=== PATIENT | female | born 1965 | race Caucasian/White ===

== ENCOUNTER 2017-01-07 23:03 | Emergency (ER) | payer SELFPAY ==
[2017-01-07 23:22] VITALS: BP 136/91; PULSE 91; RESP 20; TEMP 98.2; O2SAT 99
[2017-01-08] MEDS ORDERED: Naproxen 550 mg Tab PO STA (00:04)
--- NOTE | 2017-01-08 00:07 | C.PDOC ---
History Of Present Illness 51 year old female who presents to the ER with a complaint of intermittent left shoulder pain for the past 2 weeks that has worsened today with associated tingling sensation to the left arm and fingers. Patient states she ran out of her naproxen at home; denies trauma, weakness, numbness, chest pain, SOB, dizziness. Time Seen by Provider: 01/07/17 23:32 Chief Complaint (Nursing): Upper Extremity Problem/Injury History Per: Patient History/Exam Limitations: no limitations Onset/Duration Of Symptoms: Days, Intermittent Episodes Current Symptoms Are (Timing): Still Present Exacerbating Factor(s): Strenuous Use Of Affected Area Recent travel outside of the [place]: No Past Medical History Reviewed: Historical Data, Nursing Documentation, Vital Signs Vital Signs: Last Vital Signs Temp 98.2 F 01/07/17 23:20 Pulse 91 H 01/07/17 23:20 Resp 20 01/07/17 23:20 BP 136/91 H 01/07/17 23:20 Pulse Ox 99 01/08/17 01:17 - Medical History PMH: Asthma, Back Problems, Diabetes, HTN, Hypercholesterolemia - [facility] Procedures ENDO RECTUM POLYPECTOMY (05/01/14) Family History: States: Unknown Family Hx - Social History Hx Tobacco Use: No Hx Alcohol Use: No Hx Substance Use: No - Immunization History Hx Tetanus Toxoid Vaccination: No Hx Influenza Vaccination: Yes Hx Pneumococcal Vaccination: No Review Of Systems Constitutional: Negative for: Fever, Chills Cardiovascular: Negative for: Chest Pain Respiratory: Negative for: Shortness of Breath Musculoskeletal: Positive for: Shoulder Pain Neurological: Positive for: Other (Tingling). Negative for: Weakness, Numbness Physical Exam - Physical Exam Appears: Non-toxic Skin: Normal Color, Warm, Dry Head: Atraumatic, Normacephalic Eye(s): bilateral: Normal Inspection Oral Mucosa: Moist Cardiovascular: Rhythm Regular, No Murmur Respiratory: Normal Breath Sounds, No Wheezing Extremity: Normal ROM (of right shoulder with pain), Tenderness (anterior left shoulder at ac joint), No Deformity, No Swelling Pulses: Left Radial: Normal, Right Radial: Normal Neurological/Psych: Oriented x3, Normal Speech, Normal Cognition, Normal Motor, Normal Sensation ED Course And Treatment ECG: Interpreted By Me, Viewed By Me ECG Rhythm: Sinus Rhythm ECG Interpretation: Normal Rate From EC O2 Sat by Pulse Oximetry: 99 (Room air) Pulse Ox Interpretation: Normal Progress Note: EKG ordered. Naproxen administered. On reevaluation, patient's pain has improved, will discharge and advise to follow up with PMD. Disposition - Disposition Referrals: Sanjuanita Gordon MD [Medical Doctor] - Disposition: HOME/ ROUTINE Disposition Time: 00:05 Condition: STABLE Additional Instructions: Please follow up with PMD Take meds as directed Return to ER if pain worsen Prescriptions: Naproxen [Naprosyn] 1 tab PO BID PRN #25 tab PRN Reason: Pain Forms: [employer] (Wolof) Print Language: ERITREAN - Clinical Impression Clinical Impression: Shoulder pain, left - Scribe Statement The provider has reviewed the documentation as recorded by the Scribe Ata Bell All medical record entries made by the Scribe were at my direction and personally dictated by me. I have reviewed the chart and agree that the record accurately reflects my personal performance of the history, physical exam, medical decision making, and the department course for this patient. I have also personally directed, reviewed, and agree with the discharge instructions and disposition.
[2017-01-08] MEDS ORDERED: Naproxen 550 mg Tab PO ONE (00:09)
--- NOTE | 2017-01-08 12:27 | CARD ---
APPROVED REPORT EKG Measurement Heart [id number] <Conclusion> Normal sinus rhythm Normal ECG
== END 2017-01-08 00:16 | disposition home or self-care (01) ==
LOC: C.ER 23:03
DX: M25.512 Pain in left shoulder (principal)

== ENCOUNTER 2017-06-04 19:56 | Emergency (ER) | payer SELFPAY ==
[2017-06-04 19:57] VITALS: BMI 37.9
--- NOTE | 2017-06-04 21:22 | C.PDOC ---
History Of Present Illness 52 y/o female with dm and htn c/o cough with white to yellow sputum and pleuritic cp x 2 -3 days. no fever or chills. pain in right shoulder area as well. Time Seen by Provider: 06/04/17 21:15 Chief Complaint (Nursing): Flu-like Symptoms History Per: Patient History/Exam Limitations: no limitations Onset/Duration Of Symptoms: Days (3) Location Of Pain: Other (right upper back) Associated Symptoms: Cough, Sputum. denies: Fever, Chills Past Medical History Reviewed: Historical Data, Nursing Documentation, Vital Signs Vital Signs: Last Vital Signs Temp 98.2 F 06/04/17 22:13 Pulse 79 06/04/17 22:13 Resp 20 06/04/17 22:13 BP 127/82 06/04/17 22:13 Pulse Ox 100 06/07/17 18:11 - Medical History PMH: Asthma, Back Problems, Diabetes, HTN, Hypercholesterolemia Denies: Chronic Kidney Disease - [facility] Procedures ENDO RECTUM POLYPECTOMY (05/01/14) Family History: States: Unknown Family Hx - Social History Hx Tobacco Use: No Hx Alcohol Use: No Hx Substance Use: No - Immunization History Hx Tetanus Toxoid Vaccination: No Hx Influenza Vaccination: No Hx Pneumococcal Vaccination: No Review Of Systems Constitutional: Negative for: Fever, Chills Cardiovascular: Negative for: Chest Pain Respiratory: Positive for: Cough, Sputum. Negative for: Shortness of Breath, Hemoptysis, Wheezing Gastrointestinal: Negative for: Abdominal Pain Neurological: Negative for: Weakness, Numbness Physical Exam - Physical Exam Appears: Non-toxic, No Acute Distress Skin: Warm, Dry Head: Atraumatic, Normacephalic Eye(s): bilateral: Normal Inspection Nose: No Discharge Oral Mucosa: Moist Throat: No Erythema, No Exudate Neck: Supple Cardiovascular: Rhythm Regular Respiratory: No Decreased Breath Sounds, No Rales, No Rhonchi, No Wheezing Back: Normal Inspection, Paraspinal Tenderness (rugght upper back) Extremity: Normal ROM, No Pedal Edema Neurological/Psych: Oriented x3, Normal Speech, Normal Cognition ED Course And Treatment O2 Sat by Pulse Oximetry: 100 Medical Decision Making Medical Decision Making: reviewed xray, no acute infiltrate noted. will d/c home. pt with clear lungs/ Disposition Counseled Patient/Family Regarding: Studies Performed, Diagnosis, Need For Followup - Disposition Referrals: Isa Hinds MD [Primary Care Provider] - Disposition: HOME/ ROUTINE Disposition Time: 22:01 Condition: STABLE Additional Instructions: Por favor tome Tylenol o Motrin para el dolor si es necesario. El Rito Z Pack seg n lo recetado. Siga en la clnica mdica en los prximos gee. Prescriptions: Azithromycin [Z-Huy] 250 mg PO DAILY #6 tab Instructions: Acute Bronchitis (ED) Forms: Gen Discharge Inst Afghan, [employer] (Afghan) Print Language: UPPER SORBIAN - Clinical Impression Clinical Impression: Bronchitis
[2017-06-04 22:14] VITALS: BP 127/82; PULSE 79; RESP 20; TEMP 98.2
--- NOTE | 2017-06-05 08:41 | RAD ---
Chest x-ray two views History: Cough. Chest pain. Comparison: 03/07/2015 Findings: No focal infiltrate or effusion. Heart size within normal limits. Tortuous aorta. Degenerative changes in the spine. Small nodular density at the right lung base may represent vessel on end. Impression: No focal infiltrate or effusion.
[2017-06-07 18:12] VITALS: O2SAT 100
== END 2017-06-04 22:13 | disposition home or self-care (01) ==
LOC: C.ER 19:56 → SUPCPDRO 19:56 → C.ER 22:13
DX: J40 Bronchitis, not specified as acute or chronic (principal)

== ENCOUNTER 2017-09-11 09:32 | Emergency (ER) | payer OTHER ==
[2017-09-11 09:33] VITALS: BMI 37.9
[2017-09-11 10:07] VITALS: BP 140/108; PULSE 80; TEMP 97.7; O2SAT 100
--- NOTE | 2017-09-11 10:10 | C.PDOC ---
History Of Present Illness 52 year old female present to the ED with complaints of nasal congestion, and body aches. Patient has had frequent visits to the ED. In the past, patient has consistently complained of multiple issues. Time Seen by Provider: 09/11/17 10:03 Chief Complaint (Nursing): Cough, Cold, Congestion History Per: Patient History/Exam Limitations: no limitations Onset/Duration Of Symptoms: Days Current Symptoms Are (Timing): Still Present Past Medical History Reviewed: Historical Data, Nursing Documentation, Vital Signs Vital Signs: Last Vital Signs Temp 97.7 F 09/11/17 09:51 Pulse 80 09/11/17 09:51 Resp 16 09/11/17 10:20 BP 140/108 H 09/11/17 09:51 Pulse Ox 100 09/11/17 10:10 - Medical History PMH: Asthma, Back Problems, Diabetes, HTN, Hypercholesterolemia Denies: Chronic Kidney Disease - [facility] Procedures ENDO RECTUM POLYPECTOMY (05/01/14) Family History: States: Unknown Family Hx - Social History Hx Tobacco Use: No Hx Alcohol Use: No Hx Substance Use: No - Immunization History Hx Tetanus Toxoid Vaccination: No Hx Influenza Vaccination: No Hx Pneumococcal Vaccination: No Review Of Systems Except As Marked, All Systems Reviewed And Found Negative. ENT: Positive for: Other (nasal congestion) Musculoskeletal: Positive for: Other (body aches) Physical Exam - Physical Exam Appears: Well, Non-toxic, No Acute Distress Skin: Normal Color, Warm Throat: Normal Neurological/Psych: Oriented x3, Normal Speech ED Course And Treatment O2 Sat by Pulse Oximetry: 100 (RA) Pulse Ox Interpretation: Normal Medical Decision Making Medical Decision Making: IMPRESSION: Nasal Congestion Plan: --CHemistry POC Glucose seasonal allergies, nasal congestion, no acute infection, lungs clear many prior evals in Clinic for fatigue, back pains with neg w/u including serology ? underlying anxity/depression poor med compliance w DM meds- diet and compliance educated. Disposition Doctor Will See Patient In The: Office Counseled Patient/Family Regarding: Studies Performed, Diagnosis - Disposition Referrals: General Studies Program Chair Service [Outside] [facility] [Outside] Disposition: HOME/ ROUTINE Disposition Time: 10:10 Condition: GOOD Additional Instructions: Rae Cindy o' Claritin, o' otro medicamentos para la allergias de la temporada Rae Nyquil en la noche para ayudarse dormir Sigue en la Clinica Familiar Instructions: Seasonal Allergies in Adults Forms: [facility] (Burundian) Print Language: GERMAN - Clinical Impression Clinical Impression: Influenza-like illness - Scribe Statement The provider has reviewed the documentation as recorded by the Scribe (Ele Fay) All medical record entries made by the Scribe were at my direction and personally dictated by me. I have reviewed the chart and agree that the record accurately reflects my personal performance of the history, physical exam, medical decision making, and the department course for this patient. I have also personally directed, reviewed, and agree with the discharge instructions and disposition.
[2017-09-11 10:21] VITALS: RESP 16
== END 2017-09-11 10:20 | disposition home or self-care (01) ==
LOC: C.ER 09:32
DX: J11.1 Influenza due to unidentified influenza virus with other respiratory manifestations (principal)

== ENCOUNTER 2018-08-03 22:45 | Observation (INO) | payer OTHER ==
[2018-08-03 23:46] LABS: BASO % 0.5 % (0.0-2.0); EOS # 0.1 K/uL (0.0-0.7); EOS % 1.2 % (0.0-4.0); HEMOGLOBIN 14.1 g/dL (11.0-16.0); LYMPH # 2.8 K/uL (1.0-4.3); LYMPH % 37.5 % (20.0-40.0); MEAN CORPUSCULAR HEMOGLOBIN 29.1 pg (27.0-31.0); MEAN CORPUSCULAR HGB CONC 33.5 g/dL (33.0-37.0); MEAN PLATELET VOLUME 8.3 fL (7.2-11.7); MONO # 0.4 K/uL (0.0-0.8); MONO % 5.6 % (0.0-10.0); NEUT # 4.2 K/uL (1.8-7.0); NEUT % 55.2 % (50.0-75.0); RBC 4.85 Mil/uL (3.80-5.20); RED CELL DISTRIBUTION WIDTH 13.3 % (11.5-14.5); WHITE BLOOD COUNT 7.6 K/uL (4.8-10.8)
[2018-08-03 23:51] LABS: MEAN CELL VOLUME 86.9 fL (81.0-99.0)
[2018-08-03 23:54] LABS: PROTHROMBIN TIME 11.3 SECONDS (9.7-12.2)
[2018-08-04 00:06] LABS: CK-MB 1.34 ng/mL (0.0-3.38)
[2018-08-04 00:18] LABS: ALB/GLOB RATIO 1.6 (1.0-2.1); ALBUMIN 4.5 g/dL (3.5-5.0); ALT/SGPT 19 U/L (9-52); AST/SGOT 24 U/L (14-36); BLOOD UREA NITROGEN 17 mg/dL (7-17); CALCIUM 9.8 mg/dl (8.6-10.4); GFR NON-AFRICAN AMERICAN > 60
--- NOTE | 2018-08-04 00:34 | C.PDOC ---
History Of Present Illness Patient presents to ED c/o left sided chest pain described as intermittent, nonradiating, burning/pressure like in nature. Pain began yesterday, and is not associated with palpitations, SOB, nausea/vomiting, rashes, cough or fever. Patient has PMhx of asthma, HTN, DM, hyperlipidemia. She has previously seen principal data architect Dr. Lopez "several years ago", but stopped going due to loss of insurance. Time Seen by Provider: 08/03/18 23:04 Chief Complaint (Nursing): Chest Pain History Per: Patient History/Exam Limitations: no limitations Onset/Duration Of Symptoms: Days (2) Current Symptoms Are (Timing): Still Present Severity: Mild Quality: Burning, Squeezing, "Pain" Exacerbating Factors: None. denies: Turning, Movement, Deep Breathing, Exertion Past Medical History Reviewed: Historical Data, Nursing Documentation, Vital Signs Vital Signs: Last Vital Signs Temp 97.9 F 08/03/18 22:49 Pulse 86 08/03/18 22:49 Resp 16 08/03/18 22:49 BP 150/84 08/03/18 22:49 Pulse Ox 98 08/03/18 22:49 - Medical History PMH: Asthma, Back Problems, Diabetes, HTN, Hypercholesterolemia - [facility] Procedures ENDO RECTUM POLYPECTOMY (05/01/14) Family History: States: No Known Family Hx - Social History Hx Tobacco Use: No Hx Alcohol Use: No Hx Substance Use: No - Immunization History Hx Tetanus Toxoid Vaccination: No Hx Influenza Vaccination: Yes Hx Pneumococcal Vaccination: No Review Of Systems Constitutional: Negative for: Fever, Chills Cardiovascular: Positive for: Chest Pain. Negative for: Palpitations Respiratory: Negative for: Cough, Shortness of Breath Gastrointestinal: Negative for: Nausea, Vomiting, Abdominal Pain, Diarrhea Genitourinary: Negative for: Dysuria Neurological: Negative for: Headache, Dizziness Physical Exam - Physical Exam Appears: Well, Non-toxic, No Acute Distress Skin: Normal Color, Warm, Dry, No Rash Head: Normacephalic Eye(s): bilateral: Normal Inspection Oral Mucosa: Moist Cardiovascular: Rhythm Regular, No Murmur Respiratory: Normal Breath Sounds, No Rales, No Rhonchi, No Wheezing Gastrointestinal/Abdominal: Normal Exam, Bowel Sounds, Soft, No Tenderness Extremity: Normal ROM, No Pedal Edema, No Calf Tenderness Pulses: Left Dorsalis Pedis: Normal, Right Dorsalis Pedis: Normal Neurological/Psych: Oriented x3 ED Course And Treatment - Laboratory Results Result Diagrams: 08/03/18 11:39 08/03/18 11:39 Lab Results: PT 11.3 SECONDS (9.7-12.2) 08/03/18 11:39 INR 1.0 08/03/18 11:39 APTT 33 SECONDS (21-34) 08/03/18 11:39 Troponin I < 0.0120 ng/mL (0.00-0.120) 08/03/18 11:39 Total Bilirubin 0.4 mg/dL (0.2-1.3) 08/03/18 11:39 AST 24 U/L (14-36) 08/03/18 11:39 ALT 19 U/L (9-52) 08/03/18 11:39 Alkaline Phosphatase 80 U/L (38-126) 08/03/18 11:39 Total Protein 7.4 g/dL (6.3-8.3) 08/03/18 11:39 Albumin 4.5 g/dL (3.5-5.0) 08/03/18 11:39 Globulin 2.9 gm/dL (2.2-3.9) 08/03/18 11:39 Albumin/Globulin Ratio 1.6 (1.0-2.1) 08/03/18 11:39 ECG: Interpreted By Me, Viewed By Me (NSR 86 bpm, normal axis, RBBB, no acute ST/T wave changes) ECG Interpretation: No Acute Changes O2 Sat by Pulse Oximetry: 98 (RA) Pulse Ox Interpretation: Normal - Radiology CXR: Interpreted by Me, Viewed By Me CXR Interpretation: Yes: No Acute Disease. No: Infiltrates Progress Note: Blood work, EKG, CXR ordered and reviewed. No PO ASA given due to allergy. Disposition - Disposition
--- NOTE | 2018-08-04 01:02 | CP.PCM.HP ---
<Melba Arroyo P - Last Filed: 08/04/18 06:47> History of Present Illness - History of Present Illness History of Present Illness: Medicine H&P CC: Chest pain HPI: 53 year old female with PMHx of DM, HTN, HLD and asthma presents to ED complaining of L side chest pain that began last night. Pain is described as an pinching type pain 5/10 associated with L arm numbness/heaviness. Patient states she gets this pain whenever she takes her medications or when her blood sugar is elevated. The pain usually resolves within a few seconds after drinking water, however last night the pain lasted for hours prompting her to go to the ED. Patient also endorses generalized headache and lightheadedness. Patient denies fever, chills, palpitations, shortness of breath, cough, nausea, vomiting, dysu shadi, hematuria, rash, sick contacts and recent travel. PMHx: DM, HTN, HLD and asthma PSHx: denies Meds: See med list Allergies: Aspirin- abdominal pain FamHx: Mother with DM and endometrial cancer SocHx: Occassional alcohol, denies tobacco and illicit drug use. 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 PMD: Dr. Hinds Review of Systems: -Gen: No fever, No chills, + headache, No lethargy, No weakness. -HEENT: +lightheaded, No change in vision, No change in hearing, No sore throat, No dysphagia, No nasal congestion, No mucous. -Cardio: +chest pain, No palpitations, No lower extremity edema, No orthopnea. -Resp: No cough, No dyspnea, No hemoptysis, No wheezing, No pain on inspiration. -GI: No abdominal pain, No nausea/vomiting, No diarrhea/constipation, No hematochezia, No hematemesis. -: No dysuria, No urinary freq, No incontinence, No hematuria, No change in urinary stream. -MSK: +L arm heaviness. No back pain, No muscle weakness, No radiating pain. -Skin: No itching, No rash, No lesions. -Neuro: No confusion, + L arm numbness, No tingling, No radicular pain, No syncope. -Psych: No anxiety, No depression, No H/I, No S/I, No hallucinations. Present on Admission - Present on Admission Any Indicators Present on Admission: Yes History of Uncontrolled Diabetes: Yes Past Patient History - Infectious Disease Hx of Infectious Diseases: None - Past Medical History & Family History Past Medical History?: Yes - Past Social History Smoking Status: Never Smoked - CARDIAC Hx Hypercholesterolemia: Yes Hx Hypertension: Yes - PULMONARY Hx Asthma: Yes - NEUROLOGICAL Hx Neurological Disorder: No - HEENT Hx HEENT Problems: No - RENAL Hx Chronic Kidney Disease: No - ENDOCRINE/METABOLIC Hx Endocrine Disorders: Yes Hx Diabetes Mellitus Type 2: Yes - HEMATOLOGICAL/ONCOLOGICAL Hx Blood Disorders: No - INTEGUMENTARY Hx Dermatological Problems: No - MUSCULOSKELETAL/RHEUMATOLOGICAL Hx Musculoskeletal Disorders: Yes - GASTROINTESTINAL Hx Gastrointestinal Disorders: No - GENITOURINARY/GYNECOLOGICAL Hx Genitourinary Disorders: Yes (UTERINE CYSTS) - PSYCHIATRIC Hx Substance Use: No - SURGICAL HISTORY Hx Surgeries: No - ANESTHESIA Hx Anesthesia: No Hx Anesthesia Reactions: No Hx Malignant Hyperthermia: No Meds Allergies/Adverse Reactions: Allergies Allergy/AdvReac Type Severity Reaction Status Date / Time aspirin Allergy DIARRHEA Verified 08/03/18 22:52 Physical Exam - Constitutional Appears: Non-toxic, No Acute Distress - Head Exam Head Exam: ATRAUMATIC, NORMOCEPHALIC - Eye Exam Eye Exam: EOMI, Normal appearance, PERRL - ENT Exam ENT Exam: Normal Exam - Neck Exam Neck exam: Positive for: Full Rom, Normal Inspection. Negative for: Lymphadenopathy - Respiratory Exam Respiratory Exam: Chest Wall Tenderness, Clear to Auscultation Bilateral, NORMAL BREATHING PATTERN. absent: Rales, Rhonchi, Wheezes, Respiratory Distress - Cardiovascular Exam Cardiovascular Exam: REGULAR RHYTHM, +S1, +S2 Additional comments: Reproducible tenderness on palpation of the L chest - GI/Abdominal Exam GI & Abdominal Exam: Normal Bowel Sounds, Soft. absent: Firm, Guarding, Rebound, Tenderness - Extremities Exam Extremities exam: Positive for: full ROM, normal capillary refill, normal inspection, tenderness (to palpation of bicipital groove on the L), pedal pulses present. Negative for: calf tenderness, pedal edema - Neurological Exam Neurological exam: Alert, CN II-XII Intact, Normal Gait, Oriented x3 - Psychiatric Exam Psychiatric exam: Normal Affect, Normal Mood - Skin Skin Exam: Dry, Intact, Normal Color, Warm Results - Vital Signs Recent Vital Signs: Last Vital Signs Temp 97.9 F 08/03/18 22:49 Pulse 86 08/03/18 22:49 Resp 16 08/03/18 22:49 BP 150/84 08/03/18 22:49 Pulse Ox 98 08/04/18 00:36 - Labs Result Diagrams: 08/04/18 06:03 08/04/18 06:03 Labs: Laboratory Results - last 24 hr 08/03/18 08/03/18 08/03/18 11:39 11:39 11:39 WBC 7.6 RBC 4.85 Hgb 14.1 Hct 42.1 MCV 86.9 D MCH 29.1 MCHC 33.5 RDW 13.3 Plt Count 288 MPV 8.3 Neut % (Auto) 55.2 Lymph % (Auto) 37.5 [place] % (Auto) 5.6 Eos % (Auto) 1.2 Baso % (Auto) 0.5 Neut # (Auto) 4.2 Lymph # (Auto) 2.8 [place] # (Auto) 0.4 Eos # (Auto) 0.1 Baso # (Auto) 0.0 PT 11.3 INR 1.0 APTT 33 Sodium 137 Potassium 4.2 Chloride 100 Carbon Dioxide 27 Anion Gap 14 BUN 17 Creatinine 0.6 L Est GFR ( Amer) > 60 Est GFR (Non-Af Amer) > 60 Random Glucose 155 H D Calcium 9.8 Total Bilirubin 0.4 AST 24 ALT 19 Alkaline Phosphatase 80 Total Creatine Kinase 91 CK-MB (Mass) 1.34 Troponin I < 0.0120 Total Protein 7.4 Albumin 4.5 Globulin 2.9 Albumin/Globulin Ratio 1.6 Assessment & Plan - Assessment and Plan (Free Text) Plan: Chest Pain rule out MN EKG: NSR 86 bpm, normal axis, RBBB, no acute ST/T wave changes QUINN neg x1, follow up serial ROMIs and EKGs CXR: No active disease Hgb A1c 07/20: 12.2 Lipid panel 07/20: Chl 215, HDL 66, LDL 212, TG 81 F/U TSH DM Hgb A1c 07/20: 12.2 Metformin 850mg TID Glipizide 5mg PO daily Hypoglycemia protocol Accuchecks ACHS HTN Home med Losartan 100mg PO QD HLD Home med Crestor 10mg PO HS PPx Heparin 5000u SC Q8H HH/CCD Case discussed with Dr. Carballo. Melba Arroyo <KaitBhupendra P - Last Filed: 08/04/18 08:25> Results - Vital Signs Recent Vital Signs: Last Vital Signs Temp 98.1 F 08/04/18 08:20 Pulse 80 08/04/18 08:20 Resp 20 08/04/18 08:20 BP 107/67 08/04/18 08:20 Pulse Ox 97 08/04/18 08:20 - Labs Result Diagrams: 08/04/18 06:03 08/04/18 06:03 Labs: Laboratory Results - last 24 hr 08/03/18 08/03/18 08/03/18 11:39 11:39 11:39 WBC 7.6 RBC 4.85 Hgb 14.1 Hct 42.1 MCV 86.9 D MCH 29.1 MCHC 33.5 RDW 13.3 Plt Count 288 MPV 8.3 Neut % (Auto) 55.2 Lymph % (Auto) 37.5 [place] % (Auto) 5.6 Eos % (Auto) 1.2 Baso % (Auto) 0.5 Neut # (Auto) 4.2 Lymph # (Auto) 2.8 [place] # (Auto) 0.4 Eos # (Auto) 0.1 Baso # (Auto) 0.0 PT 11.3 INR 1.0 APTT 33 Sodium 137 Potassium 4.2 Chloride 100 Carbon Dioxide 27 Anion Gap 14 BUN 17 Creatinine 0.6 L Est GFR ( Amer) > 60 Est GFR (Non-Af Amer) > 60 Random Glucose 155 H D Calcium 9.8 Total Bilirubin 0.4 AST 24 ALT 19 Alkaline Phosphatase 80 Total Creatine Kinase 91 CK-MB (Mass) 1.34 Troponin I < 0.0120 Total Protein 7.4 Albumin 4.5 Globulin 2.9 Albumin/Globulin Ratio 1.6 Free T4 TSH 3rd Generation 08/04/18 08/04/18 08/04/18 06:03 06:03 06:03 WBC 8.0 RBC 4.68 Hgb 14.0 Hct 41.4 MCV 88.5 MCH 30.0 MCHC 33.9 RDW 13.1 Plt Count 284 MPV 8.5 Neut % (Auto) 54.7 Lymph % (Auto) 37.6 [place] % (Auto) 6.1 Eos % (Auto) 1.2 Baso % (Auto) 0.4 Neut # (Auto) 4.4 Lymph # (Auto) 3.0 [place] # (Auto) 0.5 Eos # (Auto) 0.1 Baso # (Auto) 0.0 PT INR APTT Sodium 135 Potassium 4.0 Chloride 99 Carbon Dioxide 27 Anion Gap 13 BUN 15 Creatinine 0.5 L Est GFR ( Amer) > 60 Est GFR (Non-Af Amer) > 60 Random Glucose 226 H D Calcium 9.7 Total Bilirubin 0.3 AST 28 ALT 17 Alkaline Phosphatase 74 Total Creatine Kinase 71 CK-MB (Mass) 0.85 Troponin I < 0.0120 Total Protein 6.9 Albumin 4.2 Globulin 2.6 Albumin/Globulin Ratio 1.6 Free T4 1.06 TSH 3rd Generation 3.39 Attending/Attestation - Attestation I have personally seen and examined this patient.: Yes I have fully participated in the care of the patient.: Yes I have reviewed all pertinent clinical information: Yes Notes (Text): 08/04/18 08:[address] in both shoulder, left axillary area, reproducible, no acute ekg changes, suspect form cervical radiculopathy H/o DM, hld, htn Plan Serial enzymes Tramadol prn See orders for detail.
[2018-08-04] MEDS ORDERED: Dextrose 50% SYRINGE Inj (50 ml) IV PRN (02:37)
[2018-08-04] MEDS ORDERED: Glucagon Recombinant 1 mg Inj IM PRN (02:37)
[2018-08-04 04:05] VITALS: RESP 20
[2018-08-04 06:07] LABS: BASO % 0.4 % (0.0-2.0); EOS # 0.1 K/uL (0.0-0.7); EOS % 1.2 % (0.0-4.0); LYMPH % 37.6 % (20.0-40.0); MEAN CELL VOLUME 88.5 fL (81.0-99.0); MEAN CORPUSCULAR HGB CONC 33.9 g/dL (33.0-37.0); MEAN PLATELET VOLUME 8.5 fL (7.2-11.7); MONO # 0.5 K/uL (0.0-0.8); MONO % 6.1 % (0.0-10.0); NEUT # 4.4 K/uL (1.8-7.0); NEUT % 54.7 % (50.0-75.0); NRBC % 0.1 % (0.0-2.0); RBC 4.68 Mil/uL (3.80-5.20); RED CELL DISTRIBUTION WIDTH 13.1 % (11.5-14.5)
[2018-08-04 06:25] LABS: ALB/GLOB RATIO 1.6 (1.0-2.1); ALBUMIN 4.2 g/dL (3.5-5.0); ALT/SGPT 17 U/L (9-52); AST/SGOT 28 U/L (14-36); BLOOD UREA NITROGEN 15 mg/dL (7-17); CALCIUM 9.7 mg/dl (8.6-10.4); GFR NON-AFRICAN AMERICAN > 60
[2018-08-04 06:31] LABS: CK-MB 0.85 ng/mL (0.0-3.38)
--- NOTE | 2018-08-04 07:30 | RAD ---
Date of service: 08/03/2018 HISTORY: CP COMPARISON: Chest radiograph 06/04/2017. TECHNIQUE: 1 view obtained. FINDINGS: LUNGS: Diminished pulmonary volume. No acute infiltrate is identified bilaterally. PLEURA: No significant pleural effusion identified, no pneumothorax apparent. CARDIOVASCULAR: No aortic atherosclerotic calcification present. Normal cardiac size. No pulmonary vascular congestion. OSSEOUS STRUCTURES: No significant abnormalities. VISUALIZED UPPER ABDOMEN: Normal. OTHER FINDINGS: None. IMPRESSION: Diminished inspiratory volume. No interval acute cardiopulmonary disease otherwise evident.
[2018-08-04] MEDS ORDERED: Tramadol 25 mg PO ONE (08:00)
[2018-08-04] MEDS: (Novolin R) Insulin Human Regular 100 units/ml vial SC SCH ×3 (08:11→12:38)
[2018-08-04 08:22] VITALS: BP 107/67; PULSE 80; TEMP 98.1; O2SAT 97
--- NOTE | 2018-08-04 10:09 | CP.PCM.DIS ---
<Christian Rodriguez - Last Filed: 08/04/18 13:27> Provider - Provider Date of Admission: 08/04/18 00:55 Attending physician: Bhupendra Carballo MD Time Spent in preparation of Discharge (in minutes): 40 Diagnosis - Discharge Diagnosis (1) Chest pain, musculoskeletal Status: Acute Hospital Course - Lab Results Lab Results: Most Recent Lab Values WBC 8.0 K/uL (4.8-10.8) 08/04/18 06:03 RBC 4.68 Mil/uL (3.80-5.20) 08/04/18 06:03 Hgb 14.0 g/dL (11.0-16.0) 08/04/18 06:03 Hct 41.4 % (34.0-47.0) 08/04/18 06:03 MCV 88.5 fL (81.0-99.0) 08/04/18 06:03 MCH 30.0 pg (27.0-31.0) 08/04/18 06:03 MCHC 33.9 g/dL (33.0-37.0) 08/04/18 06:03 RDW 13.1 % (11.5-14.5) 08/04/18 06:03 Plt Count 284 K/uL (130-400) 08/04/18 06:03 MPV 8.5 fL (7.2-11.7) 08/04/18 06:03 Neut % (Auto) 54.7 % (50.0-75.0) 08/04/18 06:03 Lymph % (Auto) 37.6 % (20.0-40.0) 08/04/18 06:03 Wilson % (Auto) 6.1 % (0.0-10.0) 08/04/18 06:03 Eos % (Auto) 1.2 % (0.0-4.0) 08/04/18 06:03 Baso % (Auto) 0.4 % (0.0-2.0) 08/04/18 06:03 Neut # (Auto) 4.4 K/uL (1.8-7.0) 08/04/18 06:03 Lymph # (Auto) 3.0 K/uL (1.0-4.3) 08/04/18 06:03 Wilson # (Auto) 0.5 K/uL (0.0-0.8) 08/04/18 06:03 Eos # (Auto) 0.1 K/uL (0.0-0.7) 08/04/18 06:03 Baso # (Auto) 0.0 K/uL (0.0-0.2) 08/04/18 06:03 PT 11.3 SECONDS (9.7-12.2) 08/03/18 11:39 INR 1.0 08/03/18 11:39 APTT 33 SECONDS (21-34) 08/03/18 11:39 Sodium 135 mmol/L (132-148) 08/04/18 06:03 Potassium 4.0 mmol/L (3.6-5.2) 08/04/18 06:03 Chloride 99 mmol/L (98-107) 08/04/18 06:03 Carbon Dioxide 27 mmol/L (22-30) 08/04/18 06:03 Anion Gap 13 (10-20) 08/04/18 06:03 BUN 15 mg/dL (7-17) 08/04/18 06:03 Creatinine 0.5 mg/dL (0.7-1.2) L 08/04/18 06:03 Est GFR ( Amer) > 60 08/04/18 06:03 Est GFR (Non-Af Amer) > 60 08/04/18 06:03 Random Glucose 226 mg/dL (65-105) H D 08/04/18 06:03 Calcium 9.7 mg/dl (8.6-10.4) 08/04/18 06:03 Total Bilirubin 0.3 mg/dL (0.2-1.3) 08/04/18 06:03 AST 28 U/L (14-36) 08/04/18 06:03 ALT 17 U/L (9-52) 08/04/18 06:03 Alkaline Phosphatase 74 U/L (38-126) 08/04/18 06:03 Total Creatine Kinase 71 U/L (30-135) 08/04/18 06:03 CK-MB (Mass) 0.85 ng/mL (0.0-3.38) 08/04/18 06:03 Troponin I < 0.0120 ng/mL (0.00-0.120) 08/04/18 06:03 Total Protein 6.9 g/dL (6.3-8.3) 08/04/18 06:03 Albumin 4.2 g/dL (3.5-5.0) 08/04/18 06:03 Globulin 2.6 gm/dL (2.2-3.9) 08/04/18 06:03 Albumin/Globulin Ratio 1.6 (1.0-2.1) 08/04/18 06:03 Free T4 1.06 ng/dL (0.78-2.19) 08/04/18 06:03 TSH 3rd Generation 3.39 mIU/L (0.46-4.68) 08/04/18 06:03 - Hospital Course Hospital Course: HPI: 53 year old female with PMHx of DM, HTN, HLD and asthma presents to ED complaining of L side chest pain that began last night. Pain is described as an pinching type pain 5/10 associated with L arm numbness/heaviness. Patient states she gets this pain whenever she takes her medications or when her blood sugar is elevated. The pain usually resolves within a few seconds after drinking water, however last night the pain lasted for hours prompting her to go to the ED. Patient also endorses generalized headache and lightheadedness. Patient denies fever, chills, palpitations, shortness of breath, cough, nausea, vomiting, dysuria, hematuria, rash, sick contacts and recent travel. During course of admission: Chest Xray obtained demonstrated no acute findings. EKG demonstrated normal sinus rhythm @ 86 beats per minute with ST or T wave changes. Serial troponin series obtained were within normal limits. Analgesics were provided for pain, likely musculoskeletal in origin as it was reproducible on physical exam to palpation and with range of motion testing. Patient was monitored overnight, remained afebrile and hemodynamically stable with improvement of pain. She is medically stable for discharge to home, as per Dr. Salcedo. Please take medications as prescribed. Chest pain is likely musculoskeletal in origin. Naproxen has been provided for anti-inflammatory, to be taken with meals. Flexeril has been provided to help reduced muscle spasms, to be taken at night as patient may feel drowsy. A short course of oral steroids has also been provided, per Dr. Salcedo, for patient's joint pain in her hands. Please follow up at [facility] for further monitoring and continuity of care. Contact information has been provided below. Please call to schedule an appointment. [facility] [place] [address] If symptoms worsen or recur, please return to ED immediately. The following is a summary of hospital course. For full detail, please refer to EMR. - Date & Time of H&P Date of H&P: 08/04/18 Time of H&P: 13:32 Discharge Exam - Head Exam Head Exam: ATRAUMATIC, NORMAL INSPECTION, NORMOCEPHALIC - Eye Exam Eye Exam: EOMI, Normal appearance Pupil Exam: NORMAL ACCOMODATION - ENT Exam ENT Exam: Mucous Membranes Moist, Normal Exam - Respiratory Exam Respiratory Exam: Clear to PA & Lateral, NORMAL BREATHING PATTERN, UNREMARKABLE. absent: Accessory Muscle Use, Decreased Breath Sounds, Respiratory Distress - Cardiovascular Exam Cardiovascular Exam: REGULAR RHYTHM, +S1, +S2 - GI/Abdominal Exam GI & Abdominal Exam: Normal Bowel Sounds, Soft, Unremarkable. absent: Distended, Firm, Guarding, Rebound, Rigid, Tenderness - Extremities Exam Extremities exam: full ROM, normal capillary refill, normal inspection, pedal pulses present Additional comments: some tenderness noted along MTP, PIP joints of hands b/l mild TTP of L shoulder - Back Exam Back exam: NORMAL INSPECTION - Neurological Exam Neurological exam: Alert, Normal Gait, Oriented x3 - Skin Skin Exam: Dry, Intact, Normal Color, Warm Discharge Plan - Discharge Medications Prescriptions: Cyclobenzaprine [Cyclobenzaprine HCl] 10 mg PO HS #5 tab GlipiZIDE [Glucotrol] 5 mg PO DAILY #30 tab Losartan [Cozaar] 100 mg PO DAILY #30 tab metFORMIN [glucOPHAGE] 850 mg PO DAILY #30 tab Naproxen 250 mg PO DAILY #5 tablet predniSONE [Prednisone] 20 mg PO DAILY #4 tab - Follow Up Plan Condition: GOOD Disposition: HOME/ ROUTINE Instructions: Heart Healthy Diet, Diabetes Exchange Diet, Chest Pain That Is Not Caused by the Heart (DC), Diabetes Diet , Chest Pain (DC), Cyclobenzaprine, Glipizide, Losartan, Metformin, Naproxen, Prednisone Additional Instructions: Patient is medically stable for discharge to home, as per Dr. Salcedo. Please take medications as prescribed. Chest pain is likely musculoskeletal in origin. Naproxen has been provided for anti-inflammatory, to be taken with meals. Flexeril has been provided to help reduced muscle spasms, to be taken at night as patient may feel drowsy. A short course of oral steroids has also been provided, per Dr. Salcedo, for patient's joint pain in her hands. Please follow up at [facility] for further monitoring and continuity of care. Contact information has been provided below. Please call [place] [address] If symptoms worsen or recur, please return to ED immediately. El paciente se encuentra mdicamente estable para el pasquale hospitalaria, segn el Dr. Salcedo. Por favor tome los medicamentos segn lo prescrito. El dolor de pecho es probablemente de origen musculoesqueltico. El naproxeno se ordoñez suministrado joseline antiinflamatorio para luke con las comidas. Se ordoñez proporcionado Flexeril para ayudar a reducir los espasmos musculares, que debe tomarse por la noche ya que el paciente puede sentirse somnoliento. Tambin se ordoñez proporcionado un curso corto de esteroides orales, segn el Dr. Salcedo, para el dolor articular de la paciente en duke suraj. Por favor, herb un seguimiento en [facility] en [facility] para radha mayor supervisin y continuidad de la atencin. La informacin de contacto se ordoñez proporcionado a continuacin. Favor de llamar para hacer radha angelo. [facility] [place] [address] Telfono: [phone] Si los sntomas empeoran o reaparecen, regrese inmediatamente a la DE. Referrals: [facility] [Outside] <Sanchez Salcedo - Last Filed: 08/04/18 14:54> Provider - Provider Date of Admission: 08/04/18 00:55 Attending physician: Bhupendra Carballo MD Hospital Course - Lab Results Lab Results: Most Recent Lab Values WBC 8.0 K/uL (4.8-10.8) 08/04/18 06:03 RBC 4.68 Mil/uL (3.80-5.20) 08/04/18 06:03 Hgb 14.0 g/dL (11.0-16.0) 08/04/18 06:03 Hct 41.4 % (34.0-47.0) 08/04/18 06:03 MCV 88.5 fL (81.0-99.0) 08/04/18 06:03 MCH 30.0 pg (27.0-31.0) 08/04/18 06:03 MCHC 33.9 g/dL (33.0-37.0) 08/04/18 06:03 RDW 13.1 % (11.5-14.5) 08/04/18 06:03 Plt Count 284 K/uL (130-400) 08/04/18 06:03 MPV 8.5 fL (7.2-11.7) 08/04/18 06:03 Neut % (Auto) 54.7 % (50.0-75.0) 08/04/18 06:03 Lymph % (Auto) 37.6 % (20.0-40.0) 08/04/18 06:03 Wilson % (Auto) 6.1 % (0.0-10.0) 08/04/18 06:03 Eos % (Auto) 1.2 % (0.0-4.0) 08/04/18 06:03 Baso % (Auto) 0.4 % (0.0-2.0) 08/04/18 06:03 Neut # (Auto) 4.4 K/uL (1.8-7.0) 08/04/18 06:03 Lymph # (Auto) 3.0 K/uL (1.0-4.3) 08/04/18 06:03 Wilson # (Auto) 0.5 K/uL (0.0-0.8) 08/04/18 06:03 Eos # (Auto) 0.1 K/uL (0.0-0.7) 08/04/18 06:03 Baso # (Auto) 0.0 K/uL (0.0-0.2) 08/04/18 06:03 PT 11.3 SECONDS (9.7-12.2) 08/03/18 11:39 INR 1.0 08/03/18 11:39 APTT 33 SECONDS (21-34) 08/03/18 11:39 Sodium 135 mmol/L (132-148) 08/04/18 06:03 Potassium 4.0 mmol/L (3.6-5.2) 08/04/18 06:03 Chloride 99 mmol/L (98-107) 08/04/18 06:03 Carbon Dioxide 27 mmol/L (22-30) 08/04/18 06:03 Anion Gap 13 (10-20) 08/04/18 06:03 BUN 15 mg/dL (7-17) 08/04/18 06:03 Creatinine 0.5 mg/dL (0.7-1.2) L 08/04/18 06:03 Est GFR ( Amer) > 60 08/04/18 06:03 Est GFR (Non-Af Amer) > 60 08/04/18 06:03 Random Glucose 226 mg/dL (65-105) H D 08/04/18 06:03 Calcium 9.7 mg/dl (8.6-10.4) 08/04/18 06:03 Total Bilirubin 0.3 mg/dL (0.2-1.3) 08/04/18 06:03 AST 28 U/L (14-36) 08/04/18 06:03 ALT 17 U/L (9-52) 08/04/18 06:03 Alkaline Phosphatase 74 U/L (38-126) 08/04/18 06:03 Total Creatine Kinase 62 U/L (30-135) 08/04/18 13:44 CK-MB (Mass) 0.62 ng/mL (0.0-3.38) 08/04/18 13:44 Troponin I < 0.0120 ng/mL (0.00-0.120) 08/04/18 13:44 Total Protein 6.9 g/dL (6.3-8.3) 08/04/18 06:03 Albumin 4.2 g/dL (3.5-5.0) 08/04/18 06:03 Globulin 2.6 gm/dL (2.2-3.9) 08/04/18 06:03 Albumin/Globulin Ratio 1.6 (1.0-2.1) 08/04/18 06:03 Free T4 1.06 ng/dL (0.78-2.19) 08/04/18 06:03 TSH 3rd Generation 3.39 mIU/L (0.46-4.68) 08/04/18 06:03 Attending/Attestation - Attestation I have personally seen and examined this patient.: Yes I have fully participated in the care of the patient.: Yes I have reviewed all pertinent clinical information, including history, physical exam and plan: Yes Notes (Text): 08/04/18 14:51 Medical attending: Patient was seen and examined by me. Agree with the above note by the resident The patient looked very well - the pain that she had resolved. The patient's lab work was stable and CE was stable and also EKG appeared stable Sanchez Salcedo
[2018-08-04 14:14] LABS: CK-MB 0.62 ng/mL (0.0-3.38)
--- NOTE | 2018-08-05 06:31 | CARD ---
APPROVED REPORT Date of service: 08/03/2018 EKG Measurement Heart [id number] <Conclusion> Normal sinus rhythm Incomplete right bundle branch block Borderline ECG
[2018-08-06] MEDS ORDERED: Pneumococcal 23-Valent Vaccine IM ONE (11:00)
== END 2018-08-04 14:42 | disposition home or self-care (01) ==
LOC: C.ER 22:45 → C.6T 08-04 00:55
PROVIDERS: ADMIT Internal Medicine; ATTEND Internal Medicine
DX: R07.89 Other chest pain (principal); E11.9 Type 2 diabetes mellitus without complications; E78.00 Pure hypercholesterolemia, unspecified; E78.5 Hyperlipidemia, unspecified; I10 Essential (primary) hypertension; J45.909 Unspecified asthma, uncomplicated; M25.541 Pain in joints of right hand; M25.542 Pain in joints of left hand; Z80.49 Family history of malignant neoplasm of other genital organs; Z83.3 Family history of diabetes mellitus
CPT/HCPCS: 36415; 71045; 80053; 82550; 82553; 84439; 84443; 84484; 85025; 85610; 85730; G0378; J1644